=== PATIENT | female | born 1980 | race African-American/Black ===

== ENCOUNTER 2018-12-23 09:28 | Inpatient (IN) | payer OTHER ==
[2018-12-23 09:49] VITALS: BMI 17.2
--- NOTE | 2018-12-23 10:23 | HP ---
CIWA Score Nausea/Vomitin Muscle Tremors: 2 Anxiety: 2 Agitation: 2 Paroxysmal Sweats: 1-Minimal Palms Moist Orientation: 0-Oriented Tacttile Disturbances: 1-Very Mild Itch/Numbness Auditory Disturbances: 1-Very Mild Visual Disturbances: 0-None Headache: 2-Mild CIWA-Ar Total Score: 13 - Admission Criteria OASAS Guidelines: Admission for Medically Managed Detox: Requires at least one of the followin. CIWA greater than 12 2. Seizures within the past 24 hours 3. Delirium tremens within the past 24 hours 4. Hallucinations within the past 24 hours 5. Acute intervention needed for co occurring medical disorder 6. Acute intervention needed for co occurring psychiatric disorder 7. Severe withdrawal that cannot be handled at a lower level of care (continued vomiting, continued diarrhea, abnormal vital signs) requiring intravenous medication and/or fluids 8. 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 Loss EENT: reports: Tearing, Nose Congestion Respiratory: reports: No Symptoms reported Cardiac: reports: No Symptoms Reported GI: reports: Nausea, Poor Appetite, Abdominal cramping : reports: No Symptoms Reported Musculoskeletal: reports: Back Pain, Muscle Pain Integumentary: reports: Dryness Neuro: reports: Headache, Tremors Endocrine: reports: No Symptoms Reported Hematology: reports: No Symptoms Reported Psychiatric: reports: No Sypmtoms Reported, Judgement Intact, Mood/Affect Appropiate, Orientated x3 Other Systems: Reviewed and Negative Patient History - Patient Medical History Hx Anemia: No Hx Asthma: Yes (on albuterol inhaler) Hx Chronic Obstructive Pulmonary Disease (COPD): No Hx Cancer: No Hx Cardiac Disorders: Yes (heart murmur) Hx Congestive Heart Failure: No Hx Hypertension: Yes (non compliance) Hx Hypercholesterolemia: No Hx Pacemaker: No HX Cerebrovascular Accident: Yes (old cva with right hemiparesis upper extremity in 05/21 [facility]) Hx Seizures: No Hx Dementia: No Hx Diabetes: No Hx Gastrointestinal Disorders: No Hx Liver Disease: No Hx Genitourinary Disorders: No Hx Sexually Transmitted Disorders: No Hx Renal Disease (ESRD): No Hx Thyroid Disease: No Hx Human Immunodeficiency Virus (HIV): No (last 04/21 negative) Hx Hepatitis C: No Hx Depression: Yes Hx Suicide Attempt: Yes (overdose 12/21/18 overdose of pills) Hx Bipolar Disorder: No Hx Schizophrenia: No Other Medical History: no suicidal mno homicidal - Patient Surgical History Hx Orthopedic Surgery: Yes (ganglion of right hand in 2008) Other Surgical History: ovarian cyst left in 2011,surgery of right eye post trauma in 2006 - PPD History Previous Implant?: Yes Documented Results: Negative w/o proof Implanted On Prior R Admission?: No PPD to be Administered?: Yes - Reproductive History Patient is a Female of Child Bearing Age (11 -55 yrs old): Yes Last Menstrual Period: 12/11/18 Patient : No - Smoking Cessation Smoking history: Current every day smoker Have you smoked in the past 12 months: Yes Aproximately how many cigarettes per day: 20 Cigars Per Day: 0 Hx Chewing Tobacco Use: No Initiated information on smoking cessation: Yes 'Breaking Loose' booklet given: 12/23/18 - Substance & Tx. History Hx Alcohol Use: Yes Hx Substance Use: No Substance Use Type: Alcohol Hx Substance Use Treatment: No - Substances abused Alcohol Substance route: Oral Frequency: Daily Amount used: 4 bottles of vodka/lanette 3 pints/2 of 40 ozs of beer Age of first use: 12 Date of last use: 12/23/18 Family Disease History - Family Disease History Family History: Denies Admission Physical Exam BHS - Vital Signs Vital Signs: Vital Signs - 24 hr 12/23/18 12/23/18 09:42 10:04 Temperature 98.5 F 98.5 F Pulse Rate 103 H 103 H Respiratory 18 18 Rate Blood Pressure 179/129 H 179/129 H - Physical General Appearance: Yes: Moderate Distress, Tremorous, Irritable, Sweating, Anxious HEENTM: Yes: Normal ENT Inspection, [id number], Pharynx Normal Respiratory: Yes: Lungs Clear, Normal Breath Sounds, No Respiratory Distress Neck: Yes: Within Normal Limits, Supple, Trachea in good position Cardiology: Yes: Within Normal Limits, Regular Rhythm, Regular Rate, S1, S2, Murmur Abdominal: Yes: Within Normal Limits, Normal Bowel Sounds, Non Tender, Flat, Soft Genitourinary: Yes: Within Normal Limits Back: Yes: Muscle Spasm Musculoskeletal: Yes: full range of Motion, Back pain, Muscle Pain Extremities: Yes: Tremors Neurological: Yes: multi line claims adjuster II-XII NML intact, Fully Oriented, Alert, Motor Strength 5/5 Integumentary: Yes: Dry Lymphatic: Yes: Within Normal Limits - Diagnostic (1) Alcohol dependence with uncomplicated withdrawal Current Visit: Yes Status: Acute (2) Essential hypertension Current Visit: Yes Status: Acute (3) CVA (cerebral vascular accident) Current Visit: Yes Status: Acute (4) Syncope Current Visit: Yes Status: Acute (5) Heart murmur Current Visit: Yes Status: Acute (6) Asthma Current Visit: Yes Status: Acute (7) History of surgical removal of ganglion cyst Current Visit: Yes Status: Acute (8) Ovarian cyst, left Current Visit: Yes Status: Acute Comment: removal of cyst (9) Weight loss Current Visit: Yes Status: Acute Cleared for Admission S - Detox or Rehab [facility] Level of Care: Medically Managed Detox Regimen/Protocol: Librium Breathalyzer - Breathalyzer Breathalyzer: 0 Urine Drug Screen - Test Device Lot number: [id number] Expiration date: 09/03/20 - Control Is test valid?: Yes - Results Drug screen NEGATIVE: No Urine drug screen results: THC-Marijuana Inpatient Rehab Admission - Rehab Decision to Admit Inpatient rehab admission?: No
[2018-12-23] MEDS ORDERED: IBUPROFEN 400 MG TABLET (FP) PO PRN (10:43)
[2018-12-23] MEDS ORDERED: MAG HYDROX/AL HYDROX/SIMETH 30 ML UNIT-DOSE CUP PO PRN (10:43)
[2018-12-23] MEDS ORDERED: MAGNESIUM CITRATE 300 ML BOTTLE PO PRN (10:43)
[2018-12-23] MEDS ORDERED: NICOTINE POLACRILEX 2 MG GUM BUC PRN (10:43)
[2018-12-23] MEDS ORDERED: METHOCARBAMOL 500 MG TABLET PO PRN (10:43)
[2018-12-23] MEDS ORDERED: ACETAMINOPHEN 325 MG TABLET (FP) PO PRN ×2 (10:43)
[2018-12-23] MEDS ORDERED: chlordiazePOXIDE HCL 25 MG CAPSULE PO PRN (10:43)
[2018-12-23] MEDS ORDERED: hydrOXYzine PAMOATE 25 MG CAPSULE (FP) PO PRN (10:43)
[2018-12-23] MEDS ORDERED: MENTHOL/PHENOL 1 EACH UD MM PRN (10:43)
[2018-12-23] MEDS ORDERED: MAGNESIUM HYDROX 2400MG/30ML ORAL SUSPENSION 30 ML CUP PO PRN (10:43)
[2018-12-23] MEDS ORDERED: BISMUTH SUBSALICYLATE 262 MG/15 ML BTL PO PRN (10:43)
[2018-12-23] MEDS: METOPROLOL TARTRATE 50 MG TABLET (FP) PO SCH ×2 (12:23→22:27)
[2018-12-23] MEDS: LISINOPRIL 20 MG TABLET (FP) PO SCH (12:23)
[2018-12-23] MEDS: NICOTINE 21 MG/24 HOURS TOPICAL PATCH TD SCH (12:23)
[2018-12-23] MEDS: ASPIRIN 81 MG CHEWABLE TABLETS PO SCH (12:23)
[2018-12-23 14:54] LABS: HEMATOCRIT 34.9 % (32.4-45.2); MCH 28.2 pg (25.7-33.7); MCHC 31.5 g/dl (32.0-36.0); MEAN CELL VOLUME 89.4 fl (80-96); MEAN PLT VOLUME 9.2 fl (7.5-11.1); PLATELET COUNT 136 K/MM3 (134-434); RDW 19.1 % (11.6-15.6); WHITE BLOOD COUNT 2.7 K/mm3 (4.0-10.0)
[2018-12-23 14:58] LABS: URINE APPEARANCE CLEAR; URINE BILIRUBIN NEGATIVE (NEGATIVE); URINE COLOR YELLOW; URINE GLUCOSE (UA) NEGATIVE (NEGATIVE); URINE KETONE TRACE (NEGATIVE); URINE LEUK ESTERASE NEGATIVE (NEGATIVE); URINE NITRITE NEGATIVE (NEGATIVE); URINE PROTEIN NEGATIVE (NEGATIVE)
[2018-12-23 15:01] LABS: BILIRUBIN,TOTAL 0.4 mg/dL (0.2-1); CALCIUM 8.8 mg/dL (8.5-10.1); CREATININE 0.8 mg/dL (0.55-1.3); POTASSIUM 3.9 mmol/L (3.5-5.1); TOT PROT 8.6 g/dl (6.4-8.2)
--- NOTE | 2018-12-23 15:21 | EKG ---
Test Reason : Blood Pressure : / mmHG Vent. Rate : 083 BPM Atrial Rate : 083 BPM P-R Int : 158 ms QRS Dur : 074 ms QT Int : 402 ms P-R-T Axes : 072 059 064 degrees QTc Int : 472 ms POOR DATA QUALITY, INTERPRETATION MAY BE ADVERSELY AFFECTED NORMAL SINUS RHYTHM NORMAL ECG NO PREVIOUS ECGS AVAILABLE Confirmed by SKYLA JACK, GERMAINE ([id number]) on 12/23/2018 3:20:57 PM Referred By: Confirmed By:GERMAINE CRUM MD
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
[2018-12-23] MEDS: chlordiazePOXIDE HCL 25 MG CAPSULE PO SCH ×2 (17:11→22:27)
[2018-12-23] MEDS: THIAMINE HCL 100 MG TABLET (FP) PO SCH (22:27)
[2018-12-23] MEDS: MELATONIN 5 MG TABLETS PO PRN (22:29)
[2018-12-24] MEDS: chlordiazePOXIDE HCL 25 MG CAPSULE PO SCH ×4 (05:25→22:18)
[2018-12-24] MEDS: PRENATAL VITAMINS W/ FOLIC ACID TABLET (FP) PO SCH (10:33)
[2018-12-24] MEDS: METOPROLOL TARTRATE 50 MG TABLET (FP) PO SCH ×2 (10:33→22:18)
[2018-12-24] MEDS: NICOTINE 21 MG/24 HOURS TOPICAL PATCH TD SCH (10:33)
[2018-12-24] MEDS: LISINOPRIL 20 MG TABLET (FP) PO SCH (10:33)
[2018-12-24] MEDS: ASPIRIN 81 MG CHEWABLE TABLETS PO SCH (10:33)
--- NOTE | 2018-12-24 11:30 | PN ---
S CIWA - CIWA Score Nausea/Vomitin-No Nausea/No Vomiting Muscle Tremors: 3 Anxiety: 3 Agitation: 3 Paroxysmal Sweats: 3 Orientation: 0-Oriented Tacttile Disturbances: 0-None Auditory Disturbances: 0-None Visual Disturbances: 0-None Headache: 0-None Present CIWA-Ar Total Score: 12 BHS Progress Note (SOAP) Subjective: sweats shakes interrupted sleep body aches headache Objective: 12/24/18 11:28 Vital Signs Temperature 98.1 F 12/24/18 09:14 Pulse Rate 83 12/24/18 09:14 Respiratory Rate 16 12/24/18 09:14 Blood Pressure 152/111 H 12/24/18 09:14 O2 Sat by Pulse Oximetry (%) Laboratory Tests 12/23/18 12/23/18 12/23/18 10:50 10:50 10:50 WBC 2.7 L RBC 3.90 Hgb 11.0 Hct 34.9 MCV 89.4 MCH 28.2 MCHC 31.5 L RDW 19.1 H Plt Count 136 MPV 9.2 Sodium 138 Potassium 3.9 Chloride 101 Carbon Dioxide 32 Anion Gap 5 L BUN 13 Creatinine 0.8 Est GFR (CKD-EPI)AfAm 108.39 Est GFR (CKD-EPI)NonAf 93.52 Random Glucose 106 Calcium 8.8 Total Bilirubin 0.4 AST 42 H ALT 46 Alkaline Phosphatase 71 Total Protein 8.6 H Albumin 4.0 Urine Color Urine Appearance Urine pH Ur Specific [place] Urine Protein Urine Glucose (UA) Urine Ketones Urine Blood Urine Nitrite Urine Bilirubin Urine Urobilinogen Ur Leukocyte Esterase POC Urine HCG, Qual Negative 12/23/18 12:18 WBC RBC Hgb Hct MCV MCH MCHC RDW Plt Count MPV Sodium Potassium Chloride Carbon Dioxide Anion Gap BUN Creatinine Est GFR (CKD-EPI)AfAm Est GFR (CKD-EPI)NonAf Random Glucose Calcium Total Bilirubin AST ALT Alkaline Phosphatase Total Protein Albumin Urine Color Yellow Urine Appearance Clear Urine pH 6.0 Ur Specific [place] 1.025 Urine Protein Negative Urine Glucose (UA) Negative Urine Ketones Trace H Urine Blood Negative Urine Nitrite Negative Urine Bilirubin Negative Urine Urobilinogen 1.0 Ur Leukocyte Esterase Negative POC Urine HCG, Qual labs and BP noted pt will be taking her hypertensive medication this am; will f/u with next BP reading aaox3 lying in bed no acute distress Assessment: 12/24/18 11:29 withdrawal sx Plan: continue detox increase fluids tylenol for MCBRIDE prn
[2018-12-24] MEDS: THIAMINE HCL 100 MG TABLET (FP) PO SCH (22:18)
[2018-12-24] MEDS: MELATONIN 5 MG TABLETS PO PRN (22:19)
[2018-12-25] MEDS: chlordiazePOXIDE HCL 25 MG CAPSULE PO SCH ×2 (05:23→10:07)
[2018-12-25] MEDS: NICOTINE 21 MG/24 HOURS TOPICAL PATCH TD SCH (10:07)
[2018-12-25] MEDS: LISINOPRIL 20 MG TABLET (FP) PO SCH (10:07)
[2018-12-25] MEDS: ASPIRIN 81 MG CHEWABLE TABLETS PO SCH (10:07)
[2018-12-25] MEDS: METOPROLOL TARTRATE 50 MG TABLET (FP) PO SCH ×2 (10:07→22:02)
[2018-12-25] MEDS: PRENATAL VITAMINS W/ FOLIC ACID TABLET (FP) PO SCH (10:07)
[2018-12-25] MEDS: cloNIDine HCL 0.1 MG TABLET PO SCH ×2 (13:10→22:02)
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
--- NOTE | 2018-12-25 15:13 | PN ---
S CIWA - CIWA Score Nausea/Vomitin-No Nausea/No Vomiting Muscle Tremors: 3 Anxiety: 3 Agitation: 3 Paroxysmal Sweats: 3 Orientation: 0-Oriented Tacttile Disturbances: 0-None Auditory Disturbances: 0-None Visual Disturbances: 0-None Headache: 0-None Present CIWA-Ar Total Score: 12 BHS Progress Note (SOAP) Subjective: anxiety sweats shakes insomnia Objective: 12/25/18 15:12 Vital Signs Temperature 97.5 F L 12/25/18 14:03 Pulse Rate 78 12/25/18 14:03 Respiratory Rate 18 12/25/18 14:03 Blood Pressure 127/92 12/25/18 14:03 O2 Sat by Pulse Oximetry (%) Laboratory Tests 12/23/18 12/23/18 12/23/18 10:50 10:50 10:50 WBC 2.7 L RBC 3.90 Hgb 11.0 Hct 34.9 MCV 89.4 MCH 28.2 MCHC 31.5 L RDW 19.1 H Plt Count 136 MPV 9.2 Sodium 138 Potassium 3.9 Chloride 101 Carbon Dioxide 32 Anion Gap 5 L BUN 13 Creatinine 0.8 Est GFR (CKD-EPI)AfAm 108.39 Est GFR (CKD-EPI)NonAf 93.52 Random Glucose 106 Calcium 8.8 Total Bilirubin 0.4 AST 42 H ALT 46 Alkaline Phosphatase 71 Total Protein 8.6 H Albumin 4.0 Urine Color Urine Appearance Urine pH Ur Specific [place] Urine Protein Urine Glucose (UA) Urine Ketones Urine Blood Urine Nitrite Urine Bilirubin Urine Urobilinogen Ur Leukocyte Esterase POC Urine HCG, Qual Negative RPR Titer 12/23/18 12/23/18 10:50 12:18 WBC RBC Hgb Hct MCV MCH MCHC RDW Plt Count MPV Sodium Potassium Chloride Carbon Dioxide Anion Gap BUN Creatinine Est GFR (CKD-EPI)AfAm Est GFR (CKD-EPI)NonAf Random Glucose Calcium Total Bilirubin AST ALT Alkaline Phosphatase Total Protein Albumin Urine Color Yellow Urine Appearance Clear Urine pH 6.0 Ur Specific [place] 1.025 Urine Protein Negative Urine Glucose (UA) Negative Urine Ketones Trace H Urine Blood Negative Urine Nitrite Negative Urine Bilirubin Negative Urine Urobilinogen 1.0 Ur Leukocyte Esterase Negative POC Urine HCG, Qual RPR Titer Nonreactive aaox3 ambulating no acute distress Assessment: 12/25/18 15:12 withdrawal sx Plan: continue detox increase fluids clonidine 0.1mg bid with parameters psych consultation ordered
[2018-12-25] MEDS ORDERED: chlordiazePOXIDE HCL 10 MG CAPSULE PO PRN (17:00)
[2018-12-25] MEDS: chlordiazePOXIDE HCL 10 MG CAPSULE PO SCH ×2 (17:46→22:02)
[2018-12-25] MEDS ORDERED: hydrOXYzine PAMOATE 50 MG CAPSULE (FP) PO PRN (17:55)
[2018-12-25] MEDS: THIAMINE HCL 100 MG TABLET (FP) PO SCH (22:02)
[2018-12-25] MEDS: MELATONIN 5 MG TABLETS PO PRN (22:04)
[2018-12-26] MEDS: chlordiazePOXIDE HCL 10 MG CAPSULE PO SCH ×3 (06:28→17:03)
[2018-12-26] MEDS: cloNIDine HCL 0.1 MG TABLET PO SCH ×2 (10:32→22:13)
[2018-12-26] MEDS: PRENATAL VITAMINS W/ FOLIC ACID TABLET (FP) PO SCH (10:32)
[2018-12-26] MEDS: METOPROLOL TARTRATE 50 MG TABLET (FP) PO SCH ×2 (10:32→22:13)
[2018-12-26] MEDS: ASPIRIN 81 MG CHEWABLE TABLETS PO SCH (10:32)
[2018-12-26] MEDS: NICOTINE 21 MG/24 HOURS TOPICAL PATCH TD SCH (10:32)
[2018-12-26] MEDS: LISINOPRIL 20 MG TABLET (FP) PO SCH (10:32)
--- NOTE | 2018-12-26 11:49 | PN ---
S CIWA - CIWA Score Nausea/Vomitin-No Nausea/No Vomiting Muscle Tremors: 3 Anxiety: 1-Mildly Anxious Agitation: 0-Normal Activity Paroxysmal Sweats: 3 Orientation: 0-Oriented Tacttile Disturbances: 0-None Auditory Disturbances: 0-None Visual Disturbances: 0-None Headache: 2-Mild CIWA-Ar Total Score: 9 S Progress Note (SOAP) Subjective: c/o sweats, headache, anxiety, and shakes. Objective: 12/26/18 11:48 Vital Signs 12/26/18 12/26/18 08:34 09:16 Temperature 97.9 F 98.4 F Pulse Rate 81 81 Respiratory 16 18 Rate Blood Pressure 131/99 141/94 Lab Results WBC 2.7 K/mm3 (4.0-10.0) L 12/23/18 10:50 RBC 3.90 M/mm3 (3.60-5.2) 12/23/18 10:50 Hgb 11.0 GM/dL (10.7-15.3) 12/23/18 10:50 Hct 34.9 % (32.4-45.2) 12/23/18 10:50 MCV 89.4 fl (80-96) 12/23/18 10:50 MCHC 31.5 g/dl (32.0-36.0) L 12/23/18 10:50 RDW 19.1 % (11.6-15.6) H 12/23/18 10:50 Plt Count 136 K/MM3 (134-434) 12/23/18 10:50 Sodium 138 mmol/L (136-145) 12/23/18 10:50 Potassium 3.9 mmol/L (3.5-5.1) 12/23/18 10:50 Chloride 101 mmol/L (98-107) 12/23/18 10:50 Carbon Dioxide 32 mmol/L (21-32) 12/23/18 10:50 Anion Gap 5 MMOL/L (8-16) L 12/23/18 10:50 BUN 13 mg/dL (7-18) 12/23/18 10:50 Creatinine 0.8 mg/dL (0.55-1.3) 12/23/18 10:50 Random Glucose 106 mg/dL (74-106) 12/23/18 10:50 Calcium 8.8 mg/dL (8.5-10.1) 12/23/18 10:50 Labs noted. Assessment: 12/26/18 11:49 AOX3, in no acute distress full rom, ambulating in the unit withdrawal symptoms. Plan: continue detox increase fluids
[2018-12-26] MEDS: MELATONIN 5 MG TABLETS PO PRN (22:14)
[2018-12-26] MEDS: THIAMINE HCL 100 MG TABLET (FP) PO SCH (22:14)
[2018-12-27] MEDS: chlordiazePOXIDE HCL 10 MG CAPSULE PO SCH ×2 (06:13→17:10)
[2018-12-27] MEDS: cloNIDine HCL 0.1 MG TABLET PO SCH ×2 (10:32→21:50)
[2018-12-27] MEDS: PRENATAL VITAMINS W/ FOLIC ACID TABLET (FP) PO SCH (10:32)
[2018-12-27] MEDS: METOPROLOL TARTRATE 50 MG TABLET (FP) PO SCH ×2 (10:32→21:50)
[2018-12-27] MEDS: ASPIRIN 81 MG CHEWABLE TABLETS PO SCH (10:32)
[2018-12-27] MEDS: NICOTINE 21 MG/24 HOURS TOPICAL PATCH TD SCH (10:33)
[2018-12-27] MEDS: LISINOPRIL 20 MG TABLET (FP) PO SCH (10:33)
[2018-12-27] MEDS ORDERED: ALBUTEROL SO4 8 GM HFA INHALER IH PRN (12:58)
--- NOTE | 2018-12-27 15:39 | PN ---
[facility] CIWA - CIWA Score Nausea/Vomitin-No Nausea/No Vomiting Muscle Tremors: None Anxiety: 2 Agitation: 3 Paroxysmal Sweats: No Perspiration Orientation: 0-Oriented Tacttile Disturbances: 0-None Auditory Disturbances: 0-None Visual Disturbances: 0-None Headache: 0-None Present CIWA-Ar Total Score: 5 S Progress Note (SOAP) Subjective: Dizziness since yesterday (drinking lots of coffee and eat some ice chips), interrupted sleep Objective: 12/27/18 15:35 Last Vital Signs Temp Pulse Resp BP Pulse Ox 97.5 F L 69 16 127/81 12/27/18 14:47 12/27/18 14:47 12/27/18 14:47 12/27/18 14:47 Laboratory Tests 12/23/18 12/23/18 12/23/18 10:50 10:50 10:50 WBC 2.7 L RBC 3.90 Hgb 11.0 Hct 34.9 MCV 89.4 MCH 28.2 MCHC 31.5 L RDW 19.1 H Plt Count 136 MPV 9.2 Sodium 138 Potassium 3.9 Chloride 101 Carbon Dioxide 32 Anion Gap 5 L BUN 13 Creatinine 0.8 Est GFR (CKD-EPI)AfAm 108.39 Est GFR (CKD-EPI)NonAf 93.52 Random Glucose 106 Calcium 8.8 Total Bilirubin 0.4 AST 42 H ALT 46 Alkaline Phosphatase 71 Total Protein 8.6 H Albumin 4.0 Urine Color Urine Appearance Urine pH Ur Specific [place] Urine Protein Urine Glucose (UA) Urine Ketones Urine Blood Urine Nitrite Urine Bilirubin Urine Urobilinogen Ur Leukocyte Esterase POC Urine HCG, Qual Negative RPR Titer 12/23/18 12/23/18 10:50 12:18 WBC RBC Hgb Hct MCV MCH MCHC RDW Plt Count MPV Sodium Potassium Chloride Carbon Dioxide Anion Gap BUN Creatinine Est GFR (CKD-EPI)AfAm Est GFR (CKD-EPI)NonAf Random Glucose Calcium Total Bilirubin AST ALT Alkaline Phosphatase Total Protein Albumin Urine Color Yellow Urine Appearance Clear Urine pH 6.0 Ur Specific [place] 1.025 Urine Protein Negative Urine Glucose (UA) Negative Urine Ketones Trace H Urine Blood Negative Urine Nitrite Negative Urine Bilirubin Negative Urine Urobilinogen 1.0 Ur Leukocyte Esterase Negative POC Urine HCG, Qual RPR Titer Nonreactive Labs reviewed: RDW 19.1 Assessment: 12/27/18 15:36 Withdrawal symptoms C/O Dizziness, noted with elevated RDW Plan: Continue detox Patient scheduled for discharge to [facility] tomorrow. Dizziness: could be r/t dehydration (patient doesn't drink water); encouraged to drink at least 2 pitchers of water daily Elevated RDW: most likely r/t iron deficiency anemia, send iron studies
[2018-12-27] MEDS: THIAMINE HCL 100 MG TABLET (FP) PO SCH (21:50)
[2018-12-27] MEDS: MELATONIN 5 MG TABLETS PO PRN (21:50)
--- NOTE | 2018-12-28 10:12 | DS ---
[facility] Detox Discharge Summary Admission Date: 12/23/18 Discharge Date: 12/28/18 - History Present History: Alcohol Dependence - Physical Exam Results Vital Signs: Vital Signs Temperature 97.7 F 12/28/18 07:37 Pulse Rate 66 12/28/18 07:37 Respiratory Rate 16 12/28/18 07:37 Blood Pressure 139/85 12/28/18 07:37 O2 Sat by Pulse Oximetry (%) - Treatment Hospital Course: Detox Protocol Followed, Detoxed Safely, Responded well, Discharged Condition Good, Rehab Referral Accepted - Medication Discharge Medications: Ambulatory Orders Aspirin [ASA -] 81 mg PO DAILY 12/23/18 Lisinopril 20 mg PO DAILY 12/23/18 Metoprolol Tartrate [Lopressor -] 50 mg PO BID 12/23/18 - Diagnosis (1) Alcohol dependence with uncomplicated withdrawal Current Visit: Yes Status: Chronic (2) Alcohol-induced mood disorder Current Visit: Yes Status: Acute (3) Asthma Current Visit: Yes Status: Chronic Qualifiers: Asthma severity: mild Asthma complication type: unspecified (4) CVA (cerebral vascular accident) Current Visit: No Status: Chronic Qualifiers: CVA mechanism: unspecified Qualified Code(s): I63.9 - Cerebral infarction, unspecified (5) Depressive disorder Current Visit: Yes Status: Acute (6) Essential hypertension Current Visit: Yes Status: Chronic (7) History of surgical removal of ganglion cyst Current Visit: No Status: Chronic (8) Insomnia Current Visit: Yes Status: Acute (9) Ovarian cyst, left Current Visit: Yes Status: Acute (10) Syncope Current Visit: Yes Status: Acute (11) Weight loss Current Visit: Yes Status: Acute - AMA Did Patient Leave Against Medical Advice: No (referred to [facility]
[2018-12-28] MEDS: LISINOPRIL 20 MG TABLET (FP) PO SCH (10:14)
[2018-12-28] MEDS: PRENATAL VITAMINS W/ FOLIC ACID TABLET (FP) PO SCH (10:14)
[2018-12-28] MEDS: cloNIDine HCL 0.1 MG TABLET PO SCH (10:14)
[2018-12-28] MEDS: NICOTINE 21 MG/24 HOURS TOPICAL PATCH TD SCH (10:14)
[2018-12-28] MEDS: METOPROLOL TARTRATE 50 MG TABLET (FP) PO SCH (10:14)
[2018-12-28] MEDS: ASPIRIN 81 MG CHEWABLE TABLETS PO SCH (10:14)
[2018-12-28 10:48] VITALS: BP 100/69; PULSE 87; TEMP 97.5
[2018-12-30 06:06] LABS: SERUM IRON SATURATION 8 % (15-55); TOTAL IRON BINDING CAPACITY 459 ug/dL (250-450); UIBC 420 ug/dL (131-425)
== END 2018-12-28 11:35 | disposition other institution (70) | DRG 775 ==
LOC: YASAS 09:28 → Y6N 11:55
PROVIDERS: ADMIT Surgery; ATTEND Surgery
PROC: HZ2ZZZZ Detoxification Services for Substance Abuse Treatment (ICD-10-PCS; principal; 2018-12-23)
DX: F10.230 Alcohol dependence with withdrawal, uncomplicated (principal); F10.24 Alcohol dependence with alcohol-induced mood disorder; F32.9 Major depressive disorder, single episode, unspecified; G47.00 Insomnia, unspecified; I10 Essential (primary) hypertension; R01.1 Cardiac murmur, unspecified; R55 Syncope and collapse; J45.20 Mild intermittent asthma, uncomplicated; R63.4 Abnormal weight loss; Z68.1 Body mass index [BMI] 19.9 or less, adult; I69.851 Hemiplegia and hemiparesis following other cerebrovascular disease affecting right dominant side; Z91.5 Personal history of self-harm; Z87.42 Personal history of other diseases of the female genital tract
CPT/HCPCS: 36415; 80053; 81003; 81025; 82607; 82746; 83540; 83550; 85027; 86593; 93005; 93010; J0735

== ENCOUNTER 2018-12-28 11:46 | Inpatient (IN) | payer OTHER ==
--- NOTE | 2018-12-28 11:34 | HP ---
[facility] Rehab Assess/Revision - Admission History Admitted to Rehab [facility] - Findings Detox History & Physical reviewed: Yes Concur with findings: Yes Inpatient Rehab Admission - Rehab Decision to Admit Inpatient rehab admission?: Yes - Initial Determination Are CD services needed?: Yes Free of communicable disease: Yes Not in need of hospitalization: Yes - Rehab Admission Criteria Previous failed treatment: Yes Poor recovery environment: Yes Comorbidities: Yes Lacks judgement: Yes Patient is meeting Inpatient Rehab admission criteria:: Yes
[~2018-12-28 11:46] MED LIST: LOPERAMIDE HCL 2 MG CAPSULE PO PRN; MAGNESIUM CITRATE 300 ML BOTTLE PO PRN; MAGNESIUM HYDROX 2400MG/30ML ORAL SUSPENSION 30 ML CUP PO PRN; MENTHOL/PHENOL 1 EACH UD MM PRN; NICOTINE POLACRILEX 4 MG GUM BUC PRN; P-EPHED 60MG/TRIPROLIDI 2.5MG TABLET PO PRN; guaiFENesin 200 MG/10 ML 10 ML UNIT-DOSE CUPS PO PRN
[2018-12-28] MEDS: MELATONIN 5 MG TABLETS PO PRN (21:33)
[2018-12-28] MEDS: THIAMINE HCL 100 MG TABLET (FP) PO SCH (21:33)
[2018-12-28] MEDS: METOPROLOL TARTRATE 50 MG TABLET (FP) PO SCH (21:35)
[2018-12-29] MEDS ORDERED: OLANZapine 5 MG TABLET PO SCH (10:00)
[2018-12-29] MEDS ORDERED: OLANZapine 5 MG TABLET PO ONE (10:11)
--- NOTE | 2018-12-29 10:12 | PN ---
Psychiatric Progress Note Vital Signs: Vital Signs Period Temp Pulse Resp BP Sys/Maguire Pulse Ox Last 24 Hr 97.8 F-98.0 F 75-111 16-18 95-111/65-79 Date of Session: 12/29/18 Chief Complaint:: " Current Medications: Active Medications Generic Name Dose Route Start Last Admin Trade Name Freq PRN Reason Stop Dose Admin Acetaminophen 650 mg 12/28/18 11:34 Tylenol - PO Q4H PRN FEVER Al Hydroxide/Mg Hydroxide 30 ml 12/28/18 11:34 Mylanta Oral Suspension - PO Q6H PRN DYSPEPSIA Aspirin 81 mg 12/29/18 10:00 Asa - PO DAILY [facility] Eucalyptus/Menthol/Phenol/Sorbitol 1 each 12/28/18 11:34 Cepastat Lozenge - MM Q4H PRN SORE THROAT Guaifenesin 10 ml 12/28/18 11:34 Robitussin - PO Q6H PRN COUGH Hydroxyzine Pamoate 50 mg 12/28/18 11:34 Vistaril - PO Q4H PRN AGITATION Ibuprofen 400 mg 12/28/18 11:34 Motrin - PO Q6H PRN Pain Level 4-6 Lisinopril 20 mg 12/29/18 10:00 Prinivil PO DAILY [facility] Loperamide HCl 4 mg 12/28/18 11:34 Imodium - PO Q6H PRN DIARRHEA Magnesium Citrate 300 ml 12/28/18 11:34 Citroma - PO Q48H PRN CONSTIPATION Magnesium Hydroxide 30 ml 12/28/18 11:34 Milk Of Magnesia - PO DAILY PRN CONSTIPATION Melatonin 5 mg 12/28/18 22:00 12/28/18 21:33 Melatonin PO 5 mg HS PRN Administration INSOMNIA Metoprolol Tartrate 50 mg 12/28/18 22:00 12/28/18 21:35 Lopressor - PO Not Given BID NANDO Nicotine 21 mg 12/29/18 10:00 Nicoderm Patch - TD DAILY [facility] Nicotine Polacrilex 4 mg 12/28/18 11:34 Nicorette Gum - BUC Q2H PRN NICOTINE REPLACEMENT RX Olanzapine 5 mg 12/29/18 10:11 Zyprexa - PO 12/29/18 10:12 ONCE ONE Olanzapine 5 mg 12/29/18 22:00 Zyprexa - PO HS NANDO Multivit/Folic Acid/Iron 1 tab 12/29/18 10:00 Vitamins (Sjr) - PO DAILY NANDO Pseudoephedrine/Triprolidine 1 combo 12/28/18 11:34 Actifed - PO TID PRN NASAL CONGESTION Thiamine HCl 100 mg 12/28/18 22:00 12/28/18 21:33 Vitamin B1 - PO 100 mg HS NANDO Administration
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
[2018-12-29] MEDS: NICOTINE 21 MG/24 HOURS TOPICAL PATCH TD SCH (10:17)
[2018-12-29] MEDS: ASPIRIN 81 MG CHEWABLE TABLETS PO SCH (10:17)
[2018-12-29] MEDS: METOPROLOL TARTRATE 50 MG TABLET (FP) PO SCH ×2 (10:17→21:39)
[2018-12-29] MEDS: LISINOPRIL 20 MG TABLET (FP) PO SCH (10:18)
[2018-12-29] MEDS: PRENATAL VITAMINS W/ FOLIC ACID TABLET (FP) PO SCH (10:18)
--- NOTE | 2018-12-29 10:39 | PN ---
[facility] Progress Note Note: Client seen at 8:25 am for c/o that she felt like hurting herself. Patient was brought to the nurse's station and kept there for constant observation. Patient stated she was seeing people and it made her feel like she wanted to kill herself. She reported that she did not have a plan. One to one observation was ordered and a STAT psych consult.
[2018-12-29] MEDS: THIAMINE HCL 100 MG TABLET (FP) PO SCH (21:39)
[2018-12-29] MEDS: OLANZapine 5 MG TABLET PO SCH (21:40)
[2018-12-29] MEDS: MELATONIN 5 MG TABLETS PO PRN (21:40)
[2018-12-29] MEDS: hydrOXYzine PAMOATE 50 MG CAPSULE (FP) PO PRN (21:41)
[2018-12-30] MEDS: NICOTINE 21 MG/24 HOURS TOPICAL PATCH TD SCH (10:21)
[2018-12-30] MEDS: LISINOPRIL 20 MG TABLET (FP) PO SCH (10:21)
[2018-12-30] MEDS: PRENATAL VITAMINS W/ FOLIC ACID TABLET (FP) PO SCH (10:21)
[2018-12-30] MEDS: METOPROLOL TARTRATE 50 MG TABLET (FP) PO SCH ×2 (10:21→21:28)
[2018-12-30] MEDS: ASPIRIN 81 MG CHEWABLE TABLETS PO SCH (10:21)
--- NOTE | 2018-12-30 10:43 | PN ---
Psychiatric Progress Note Vital Signs: Vital Signs Period Temp Pulse Resp BP Sys/Maguire Pulse Ox Last 24 Hr 97.7 F-97.9 F 80-94 16-18 96-101/63-68 Date of Session: 12/30/18 Chief Complaint:: " I feel better today. I dont have thoughts to hurt myself." HPI: Patient placed on 1:1 observation yesterday morning after reporting having thoughts to hurt herself after seeing a person near her door. ROS: Patient presents as mildly lethargic but is coherent, alert and oriented X3. Current Medications: Active Medications Generic Name Dose Route Start Last Admin Trade Name Freq PRN Reason Stop Dose Admin Acetaminophen 650 mg 12/28/18 11:34 Tylenol - PO Q4H PRN FEVER Al Hydroxide/Mg Hydroxide 30 ml 12/28/18 11:34 Mylanta Oral Suspension - PO Q6H PRN DYSPEPSIA Aspirin 81 mg 12/29/18 10:00 12/30/18 10:21 Asa - PO 81 mg DAILY NANDO Administration Eucalyptus/Menthol/Phenol/Sorbitol 1 each 12/28/18 11:34 Cepastat Lozenge - MM Q4H PRN SORE THROAT Guaifenesin 10 ml 12/28/18 11:34 Robitussin - PO Q6H PRN COUGH Hydroxyzine Pamoate 50 mg 12/28/18 11:34 12/29/18 21:41 Vistaril - PO 50 mg Q4H PRN Administration AGITATION Ibuprofen 400 mg 12/28/18 11:34 Motrin - PO Q6H PRN Pain Level 4-6 Lisinopril 20 mg 12/29/18 10:00 12/30/18 10:21 Prinivil PO 20 mg DAILY NANDO Administration Loperamide HCl 4 mg 12/28/18 11:34 Imodium - PO Q6H PRN DIARRHEA Magnesium Citrate 300 ml 12/28/18 11:34 Citroma - PO Q48H PRN CONSTIPATION Magnesium Hydroxide 30 ml 12/28/18 11:34 Milk Of Magnesia - PO DAILY PRN CONSTIPATION Melatonin 5 mg 12/28/18 22:00 12/29/18 21:40 Melatonin PO 5 mg HS PRN Administration INSOMNIA Metoprolol Tartrate 50 mg 12/29/18 10:58 12/30/18 10:21 Lopressor - PO 50 mg BID NANDO Administration Nicotine 21 mg 12/29/18 10:00 12/30/18 10:21 Nicoderm Patch - TD 21 mg DAILY NANDO Administration Nicotine Polacrilex 4 mg 12/28/18 11:34 Nicorette Gum - BUC Q2H PRN NICOTINE REPLACEMENT RX Olanzapine 5 mg 12/29/18 22:00 12/29/18 21:40 Zyprexa - PO 5 mg HS NANDO Administration Multivit/Folic Acid/Iron 1 tab 12/29/18 10:00 12/30/18 10:21 Vitamins (Sjr) - PO 1 tab DAILY NANDO Administration Pseudoephedrine/Triprolidine 1 combo 12/28/18 11:34 Actifed - PO TID PRN NASAL CONGESTION Thiamine HCl 100 mg 12/28/18 22:00 12/29/18 21:39 Vitamin B1 - PO 100 mg HS NANDO Administration Medication(s) Change(s): No. Current Side Effect: No Lab tests ordered: No Lab tests reviewed: Yes Provider note:: Patient presents as mildly lethargic, coherent, alert and oriented X3. Patient denies visual hallucinations of seeing people and of thoughts to hurt herself or others. Patient able to accept zyprexa 5mg last night with favorable effect. States her thoughts are clearer this morning. She also reports improved sleep but states she feels tired this morning. Patient educated on the benefits and side effects of zyprexa. Patient states that she can approach staff if the negative thoughts reoccur. 1:1 to be discontinued. Nursing staff informed. Observation. Total face to face time:: 25 Mental Status Exam - Mental Status Exam Alert and Oriented to: Time, Place, Person Cognitive Function: Good Patient Appearance: Well Groomed Mood: Euthymic Affect: Appropriate Patient Behavior: Fatigued, Cooperative Speech Pattern: Appropriate Voice Loudness: Moderately Soft/Quiet Thought Process: Goal Oriented Thought Disorder: Not Present Hallucinations: Denies Suicidal Ideation: Denies Homicidal Ideation: Denies Insight/Judgement: Poor Sleep: Fair Appetite: Fair Muscle strength/Tone: Normal Gait/Station: Normal Psychiatric Treatment Plan - Problem List (1) Alcohol-induced mood disorder Comment: .. (2) Depressive disorder Comment: .. (3) Schizophrenia Comment: .. (4) Alcohol dependence Qualifiers: Substance use status: uncomplicated Qualified Code(s): F10.20 - Alcohol dependence, uncomplicated Comment: ..
[2018-12-30] MEDS: THIAMINE HCL 100 MG TABLET (FP) PO SCH (21:27)
[2018-12-30] MEDS: hydrOXYzine PAMOATE 50 MG CAPSULE (FP) PO PRN (21:27)
[2018-12-30] MEDS: OLANZapine 5 MG TABLET PO SCH (21:27)
[2018-12-31] MEDS: ASPIRIN 81 MG CHEWABLE TABLETS PO SCH (10:26)
[2018-12-31] MEDS: METOPROLOL TARTRATE 50 MG TABLET (FP) PO SCH ×2 (10:26→21:31)
[2018-12-31] MEDS: PRENATAL VITAMINS W/ FOLIC ACID TABLET (FP) PO SCH (10:27)
[2018-12-31] MEDS: NICOTINE 21 MG/24 HOURS TOPICAL PATCH TD SCH (10:27)
[2018-12-31] MEDS: LISINOPRIL 20 MG TABLET (FP) PO SCH (10:27)
[2018-12-31] MEDS: MAG HYDROX/AL HYDROX/SIMETH 30 ML UNIT-DOSE CUP PO PRN ×2 (15:50→21:33)
[2018-12-31] MEDS: hydrOXYzine PAMOATE 50 MG CAPSULE (FP) PO PRN (21:31)
[2018-12-31] MEDS: OLANZapine 5 MG TABLET PO SCH (21:31)
[2018-12-31] MEDS: THIAMINE HCL 100 MG TABLET (FP) PO SCH (21:31)
[2018-12-31] MEDS: MELATONIN 5 MG TABLETS PO PRN (21:32)
[2019-01-01] MEDS: NICOTINE 21 MG/24 HOURS TOPICAL PATCH TD SCH (10:33)
[2019-01-01] MEDS: METOPROLOL TARTRATE 50 MG TABLET (FP) PO SCH ×2 (10:33→21:37)
[2019-01-01] MEDS: ASPIRIN 81 MG CHEWABLE TABLETS PO SCH (10:33)
[2019-01-01] MEDS: PRENATAL VITAMINS W/ FOLIC ACID TABLET (FP) PO SCH (10:33)
[2019-01-01] MEDS: LISINOPRIL 20 MG TABLET (FP) PO SCH (10:33)
--- NOTE | 2019-01-01 11:56 | PN ---
[facility] Progress Note Note: Pt c/o generalized itching/dryness after using the liquid soap in the bathroom. Noted mild facial rash. Pt is AOX3, in no acute respiratory distress. Pt is instructed to stop using the bathroom soap. Aveeno bath ordered daily.
[2019-01-01] MEDS ORDERED: COLLOIDAL OATMEAL 1 EACH PACKET TP SCH (12:00)
[2019-01-01] MEDS: OLANZapine 5 MG TABLET PO SCH (21:37)
[2019-01-01] MEDS: MELATONIN 5 MG TABLETS PO PRN (21:37)
[2019-01-01] MEDS: THIAMINE HCL 100 MG TABLET (FP) PO SCH (21:37)
[2019-01-01] MEDS: COLLOIDAL OATMEAL 1 BAR EACH TP SCH (21:37)
[2019-01-02] MEDS: ACETAMINOPHEN 325 MG TABLET (FP) PO PRN (09:02)
[2019-01-02] MEDS: NICOTINE 21 MG/24 HOURS TOPICAL PATCH TD SCH (10:16)
[2019-01-02] MEDS: PRENATAL VITAMINS W/ FOLIC ACID TABLET (FP) PO SCH (10:16)
[2019-01-02] MEDS: METOPROLOL TARTRATE 50 MG TABLET (FP) PO SCH ×2 (10:16→21:30)
[2019-01-02] MEDS: LISINOPRIL 20 MG TABLET (FP) PO SCH (10:16)
[2019-01-02] MEDS: ASPIRIN 81 MG CHEWABLE TABLETS PO SCH (10:16)
[2019-01-02] MEDS: COLLOIDAL OATMEAL 1 BAR EACH TP SCH (10:18)
--- NOTE | 2019-01-02 17:41 | PN ---
[facility] Progress Note Note: Patient requested for test due to how her body feels, same ordered.
[2019-01-02] MEDS: THIAMINE HCL 100 MG TABLET (FP) PO SCH (21:30)
[2019-01-02] MEDS: OLANZapine 5 MG TABLET PO SCH (21:30)
[2019-01-02] MEDS: MELATONIN 5 MG TABLETS PO PRN (21:30)
[2019-01-02] MEDS: hydrOXYzine PAMOATE 50 MG CAPSULE (FP) PO PRN (21:31)
[2019-01-03] MEDS: IBUPROFEN 400 MG TABLET (FP) PO PRN (09:15)
[2019-01-03] MEDS: ASPIRIN 81 MG CHEWABLE TABLETS PO SCH (09:15)
[2019-01-03] MEDS: PRENATAL VITAMINS W/ FOLIC ACID TABLET (FP) PO SCH (09:15)
[2019-01-03] MEDS: NICOTINE 21 MG/24 HOURS TOPICAL PATCH TD SCH (09:16)
[2019-01-03] MEDS: LISINOPRIL 20 MG TABLET (FP) PO SCH (09:16)
[2019-01-03] MEDS: METOPROLOL TARTRATE 50 MG TABLET (FP) PO SCH ×2 (09:17→21:27)
[2019-01-03] MEDS: COLLOIDAL OATMEAL 1 BAR EACH TP SCH (09:17)
[2019-01-03] MEDS: ACETAMINOPHEN 325 MG TABLET (FP) PO PRN (12:52)
[2019-01-03] MEDS: MELATONIN 5 MG TABLETS PO PRN (21:26)
[2019-01-03] MEDS: THIAMINE HCL 100 MG TABLET (FP) PO SCH (21:26)
[2019-01-03] MEDS: hydrOXYzine PAMOATE 50 MG CAPSULE (FP) PO PRN (21:26)
[2019-01-03] MEDS: OLANZapine 5 MG TABLET PO SCH (21:26)
[2019-01-04] MEDS: COLLOIDAL OATMEAL 1 BAR EACH TP SCH (09:45)
[2019-01-04] MEDS: ASPIRIN 81 MG CHEWABLE TABLETS PO SCH (09:46)
[2019-01-04] MEDS: NICOTINE 21 MG/24 HOURS TOPICAL PATCH TD SCH (09:47)
[2019-01-04] MEDS: LISINOPRIL 20 MG TABLET (FP) PO SCH (09:47)
[2019-01-04] MEDS: PRENATAL VITAMINS W/ FOLIC ACID TABLET (FP) PO SCH (09:47)
[2019-01-04] MEDS: METOPROLOL TARTRATE 50 MG TABLET (FP) PO SCH ×2 (09:47→21:16)
[2019-01-04] MEDS: hydrOXYzine PAMOATE 50 MG CAPSULE (FP) PO PRN (21:16)
[2019-01-04] MEDS: OLANZapine 5 MG TABLET PO SCH (21:16)
[2019-01-04] MEDS: MELATONIN 5 MG TABLETS PO PRN (21:16)
[2019-01-04] MEDS: THIAMINE HCL 100 MG TABLET (FP) PO SCH (21:16)
[2019-01-05] MEDS: LISINOPRIL 20 MG TABLET (FP) PO SCH (10:00)
[2019-01-05] MEDS: METOPROLOL TARTRATE 50 MG TABLET (FP) PO SCH ×2 (10:00→21:46)
[2019-01-05] MEDS: NICOTINE 21 MG/24 HOURS TOPICAL PATCH TD SCH (10:00)
[2019-01-05] MEDS: PRENATAL VITAMINS W/ FOLIC ACID TABLET (FP) PO SCH (10:01)
[2019-01-05] MEDS: ASPIRIN 81 MG CHEWABLE TABLETS PO SCH (10:01)
[2019-01-05] MEDS: COLLOIDAL OATMEAL 1 BAR EACH TP SCH (10:02)
[2019-01-05] MEDS: OLANZapine 5 MG TABLET PO SCH (21:46)
[2019-01-05] MEDS: hydrOXYzine PAMOATE 50 MG CAPSULE (FP) PO PRN (21:46)
[2019-01-05] MEDS: THIAMINE HCL 100 MG TABLET (FP) PO SCH (21:46)
[2019-01-05] MEDS: MAG HYDROX/AL HYDROX/SIMETH 30 ML UNIT-DOSE CUP PO PRN (21:47)
[2019-01-06] MEDS: ASPIRIN 81 MG CHEWABLE TABLETS PO SCH (09:50)
[2019-01-06] MEDS: COLLOIDAL OATMEAL 1 BAR EACH TP SCH (09:50)
[2019-01-06] MEDS: NICOTINE 21 MG/24 HOURS TOPICAL PATCH TD SCH (09:51)
[2019-01-06] MEDS: LISINOPRIL 20 MG TABLET (FP) PO SCH (09:51)
[2019-01-06] MEDS: PRENATAL VITAMINS W/ FOLIC ACID TABLET (FP) PO SCH (09:51)
[2019-01-06] MEDS: METOPROLOL TARTRATE 50 MG TABLET (FP) PO SCH ×2 (09:51→21:51)
[2019-01-06] MEDS ORDERED: COLLOIDAL OATMEAL 1 BAR EACH TP PRN (10:36)
[2019-01-06] MEDS: MINERAL OIL/PETROLAT/WATER TOPICAL CREAM 113 GM JAR TP SCH (21:50)
[2019-01-06] MEDS: THIAMINE HCL 100 MG TABLET (FP) PO SCH (21:51)
[2019-01-06] MEDS: OLANZapine 5 MG TABLET PO SCH (21:51)
[2019-01-06] MEDS: hydrOXYzine PAMOATE 50 MG CAPSULE (FP) PO PRN (21:51)
[2019-01-07] MEDS: MINERAL OIL/PETROLAT/WATER TOPICAL CREAM 113 GM JAR TP SCH ×2 (10:13→21:47)
[2019-01-07] MEDS: PRENATAL VITAMINS W/ FOLIC ACID TABLET (FP) PO SCH (10:13)
[2019-01-07] MEDS: METOPROLOL TARTRATE 50 MG TABLET (FP) PO SCH ×2 (10:13→21:47)
[2019-01-07] MEDS: NICOTINE 21 MG/24 HOURS TOPICAL PATCH TD SCH (10:13)
[2019-01-07] MEDS: ASPIRIN 81 MG CHEWABLE TABLETS PO SCH (10:13)
[2019-01-07] MEDS: LISINOPRIL 20 MG TABLET (FP) PO SCH (10:13)
[2019-01-07] MEDS: OLANZapine 5 MG TABLET PO SCH (21:46)
[2019-01-07] MEDS: THIAMINE HCL 100 MG TABLET (FP) PO SCH (21:46)
[2019-01-07] MEDS: hydrOXYzine PAMOATE 50 MG CAPSULE (FP) PO PRN (21:46)
[2019-01-08] MEDS ORDERED: PT OWN MED DRAWER 7, Y5N ONE (08:49)
[2019-01-08] MEDS: MINERAL OIL/PETROLAT/WATER TOPICAL CREAM 113 GM JAR TP SCH ×2 (10:05→21:36)
[2019-01-08] MEDS: PRENATAL VITAMINS W/ FOLIC ACID TABLET (FP) PO SCH (10:05)
[2019-01-08] MEDS: ASPIRIN 81 MG CHEWABLE TABLETS PO SCH (10:05)
[2019-01-08] MEDS: METOPROLOL TARTRATE 50 MG TABLET (FP) PO SCH ×2 (10:06→21:06)
[2019-01-08] MEDS: NICOTINE 21 MG/24 HOURS TOPICAL PATCH TD SCH (10:06)
[2019-01-08] MEDS: LISINOPRIL 20 MG TABLET (FP) PO SCH (10:06)
[2019-01-08] MEDS: THIAMINE HCL 100 MG TABLET (FP) PO SCH (21:05)
[2019-01-08] MEDS: MELATONIN 5 MG TABLETS PO PRN (21:06)
[2019-01-08] MEDS: OLANZapine 5 MG TABLET PO SCH (21:06)
[2019-01-08] MEDS: hydrOXYzine PAMOATE 50 MG CAPSULE (FP) PO PRN (21:07)
[2019-01-09] MEDS: LISINOPRIL 20 MG TABLET (FP) PO SCH (10:18)
[2019-01-09] MEDS: METOPROLOL TARTRATE 50 MG TABLET (FP) PO SCH ×2 (10:18→21:19)
[2019-01-09] MEDS: PRENATAL VITAMINS W/ FOLIC ACID TABLET (FP) PO SCH (10:18)
[2019-01-09] MEDS: ASPIRIN 81 MG CHEWABLE TABLETS PO SCH (10:18)
[2019-01-09] MEDS: IBUPROFEN 400 MG TABLET (FP) PO PRN (10:19)
[2019-01-09] MEDS: MINERAL OIL/PETROLAT/WATER TOPICAL CREAM 113 GM JAR TP SCH ×2 (10:45→21:20)
[2019-01-09] MEDS: NICOTINE 21 MG/24 HOURS TOPICAL PATCH TD SCH (10:45)
[2019-01-09] MEDS: hydrOXYzine PAMOATE 50 MG CAPSULE (FP) PO PRN (21:19)
[2019-01-09] MEDS: OLANZapine 5 MG TABLET PO SCH (21:19)
[2019-01-09] MEDS: THIAMINE HCL 100 MG TABLET (FP) PO SCH (21:19)
[2019-01-10] MEDS: PRENATAL VITAMINS W/ FOLIC ACID TABLET (FP) PO SCH (10:16)
[2019-01-10] MEDS: NICOTINE 21 MG/24 HOURS TOPICAL PATCH TD SCH (10:16)
[2019-01-10] MEDS: MINERAL OIL/PETROLAT/WATER TOPICAL CREAM 113 GM JAR TP SCH ×2 (10:16→21:27)
[2019-01-10] MEDS: ASPIRIN 81 MG CHEWABLE TABLETS PO SCH (10:16)
[2019-01-10] MEDS: METOPROLOL TARTRATE 50 MG TABLET (FP) PO SCH ×2 (11:02→21:26)
[2019-01-10] MEDS: LISINOPRIL 20 MG TABLET (FP) PO SCH (11:02)
--- NOTE | 2019-01-10 14:01 | PN ---
[facility] Progress Note Note: Patient is scheduled for discharge tomorrow. Script for 30 days supply of Zyprexa 5 mg/hs will be electronically transmitted to [facility] at [address] [address]
[2019-01-10] MEDS: hydrOXYzine PAMOATE 50 MG CAPSULE (FP) PO PRN ×2 (17:35→21:26)
[2019-01-10] MEDS: THIAMINE HCL 100 MG TABLET (FP) PO SCH (21:25)
[2019-01-10] MEDS: OLANZapine 5 MG TABLET PO SCH (21:26)
[2019-01-11 07:09] VITALS: BP 121/78; PULSE 80; TEMP 98
[2019-01-11] MEDS: METOPROLOL TARTRATE 50 MG TABLET (FP) PO SCH (09:11)
[2019-01-11] MEDS: MINERAL OIL/PETROLAT/WATER TOPICAL CREAM 113 GM JAR TP SCH (09:11)
[2019-01-11] MEDS: NICOTINE 21 MG/24 HOURS TOPICAL PATCH TD SCH (09:12)
[2019-01-11] MEDS: ASPIRIN 81 MG CHEWABLE TABLETS PO SCH (09:12)
[2019-01-11] MEDS: LISINOPRIL 20 MG TABLET (FP) PO SCH (09:12)
[2019-01-11] MEDS: PRENATAL VITAMINS W/ FOLIC ACID TABLET (FP) PO SCH (09:12)
--- NOTE | 2019-01-11 09:52 | PN ---
[facility] Progress Note (SOAP) Subjective: PT COMPLETED REHAB AND DISCHARGED TODAY. PT MET WITH COUNSELLING AND HAS BEEN REFERRED TO [facility] ON [address] [place] [address] FOR CD AFTERCARE. PT REPORTS SHE HAS A PRIMARY CARE PROVIDER DR. REIS AT THE [facility] IN [place] ON [facility] FOR MEDICAL [facility]NAG[facility]. PT'S HOME PHARMACIST CONFIRMED ON Friday01/08/19 THAT PT HAS TO STOP BY TO CUSTOMER SUPPORT ADVISOR HER MEDICATIONS REFILLS ALREADY IN HER [facility]. PT REPORTS SHE IS SEEING HER PCP TODAY AFTER DISCHARGE FROM REHAB. PT IS ALERT O X 3. AMBULATES WITH STEADY GAIT. DENIES S/H/I. Objective: 01/11/19 09:52 Vital Signs - 24 hr 01/10/19 01/11/19 01/11/19 21:15 03:30 07:08 Temperature 98.0 F Pulse Rate 90 80 Respiratory 16 18 Rate Blood Pressure 123/87 121/78 PER NURSING NOTE DOCUMENTATION: 01/02/19 21:52 - Nursing Note by Aden Cortés Acct Num: [id number] : 1980 Patient Age: 38 Patient was ordered to have urine test. Patient provided urine sample , urine test results negative. Initialized on 01/02/19 21:52 - END OF NOTE Assessment: 01/11/19 09:52 NAD MEDICALLY STABLE Plan: FOLLOW UP WITH CD AFTERCARE RECOMMENDATIONS. FOLLOW UP WITH YOUR PCP TODAY AFTER DISCHARGE.
== END 2019-01-11 09:50 | disposition home or self-care (01) | DRG 772 ==
LOC: YASAS 11:46 → Y3E 11:49
PROVIDERS: ADMIT Neuromusculoskeletal Medicine & OMM; ATTEND Neuromusculoskeletal Medicine & OMM
PROC: HZ42ZZZ Group Counseling for Substance Abuse Treatment, Cognitive-Behavioral (ICD-10-PCS; principal; 2018-12-28)
DX: F10.20 Alcohol dependence, uncomplicated (principal); F17.210 Nicotine dependence, cigarettes, uncomplicated; F10.24 Alcohol dependence with alcohol-induced mood disorder; F32.9 Major depressive disorder, single episode, unspecified; I10 Essential (primary) hypertension; J45.909 Unspecified asthma, uncomplicated; R21 Rash and other nonspecific skin eruption; I69.851 Hemiplegia and hemiparesis following other cerebrovascular disease affecting right dominant side